=== PATIENT | male | born 2000 | race Caucasian/White ===

== ENCOUNTER 2022-01-11 23:08 | Emergency (ER) | payer MEDICAID ==
[~2022-01-11] VITALS: Ht 165.1 cm; Wt 75.0 kg
[2022-01-11 23:19] VITALS: TEMP 97.7
[2022-01-11 23:46] VITALS: BP 141/90; PULSE 77
== END 2022-01-11 23:47 | disposition home or self-care (01) ==
LOC: COL.ER 23:08
DX: K08.89 Other specified disorders of teeth and supporting structures (principal)
CPT/HCPCS: J1885

== ENCOUNTER 2022-01-12 01:15 | Emergency (ER) | payer MEDICAID ==
[~2022-01-12] VITALS: Ht 165.1 cm; Wt 75.0 kg
[2022-01-12 01:19] VITALS: TEMP 98
[2022-01-12 02:19] VITALS: BP 132/81; PULSE 65
== END 2022-01-12 02:20 | disposition home or self-care (01) ==
LOC: COL.ER 01:15
DX: K08.89 Other specified disorders of teeth and supporting structures (principal)